=== PATIENT | female | born 1945 | race Caucasian/White ===

== ENCOUNTER → 2024-01-30 | Outpatient (CLI) | payer SELFPAY ==
[2024-01-30] VITALS (11 sets, daily range): BP systolic 85–143; BP diastolic 41–69; PULSE 60–73; RESP 14–21; TEMP 36.8; O2SAT 36–97; BMI 27.1
--- NOTE | 2024-01-30 | IMM_PTH ---
PATIENT: IKE BRYAN LOC: [place] U#:[id number] AGE/SX: 78/F ROOM: RE01/30/[address]: Dr. Ton Olson MD : 1945 BED: DIS: 01/30/2024 SPEC #: [id number] RECD: 02/02/24 10:13 STATUS: AUDREY REQ #: [id number] CALEB: 01/30/24 00:[address]: Ton Olson DEPT: IMMUNOHISTOCHEMISTRY RECD BY: Jez Mckay ENTERED: 02/02/24 10:14 SP TYPE: IMMUNO OTHR DR: Dr. Issac Stubbs DO Tissues: Abdomen, NOS Procedures: SMA (add) CD34 (add) CD45 (add) CK8 (add) DESMIN (add) KI-67 (add) Vimentin (add) Pankeratin (initial) PHYSICIAN & INSTITUTION [place] [id number] SPECIMEN INFORMATION: Tissue Source: 18 gauge- x3 core- mid abdomen Clinical Info: Abdominal mass Specimen Number: [id number] CPT code: 68484,[id number] METHODOLOGY: Deparaffinized sections of prefer/formalin-fixed tissue or PAP/DQ stained slides are incubated with monoclonal/polyclonal antibodies/oligonucleotide probes. Localization is made via biotin free immunoperoxidase method. Appropriate controls are performed and reacted as expected. Results on target cell population are indicated in the following table: RESULTS: ANTIBODY / CLONE RESULT AE1-3 (AE1/AE3/PCK26) negative CK8 (22fefvB89) negative CD45 (RP2/18) negative Vimentin (V9) negative CD34 (QBEnd-10) negative Actin (1A4) negative Desmin (CE-R-11) negative Ki-67 (30-9) negative These tests were developed and their performance characteristics determined by [facility]. They may not have been cleared or approved by the U.[place]. Food and Drug Administration. The FDA has determined that such clearance or approval is not necessary. The above immunohistochemical/dualISH markers are ordered and reviewed by the Pathologist. 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 ERICA/ 02/03/2024
--- NOTE | 2024-01-30 07:42 | CT_ITS ---
PROCEDURE: CT GUIDED biopsy of the anterior abdominal mass. DATE: January 30, 2024. INDICATION: Female, 78 years old. Abdominal mass. PHYSICIAN: Emanuel Cheek M.D. RADIATION DOSAGE (If Supplied By Facility): CTDIvol = ( 17.5 ) mGy, DLP = ( 493.73 ) mGycm. Individualized dose optimization techniques were utilized. PROCEDURE: The risks, benefits, and alternatives to the procedure were explained to the patient. The specific risk of hemorrhage requiring further treatment or intervention was detailed and accepted. Follow-up instructions were discussed with the patient as well. Written informed consent was obtained. The patient was brought into the CT suite and placed in the supine position. . An appropriate entry site was identified. The overlying skin was prepped and draped in the usual sterile fashion. 1% lidocaine was administered subcutaneously for local anesthesia. Conscious sedation was performed. The patient received 2 mg of Versed intravenously. Conscious sedation was started at 8:57 AM and terminated at 917. The patient was independently monitored by the department nurse. Under CT guidance, a total of 5 passes were performed utilizing an 18-gauge core biopsy needle system. The specimens were then placed in the appropriate fluid and transported to the laboratory for analysis. Hemostasis was obtained. The patient tolerated the procedure well without immediate complications. CT/Biopsy/Inj or Needle Placement IMPRESSION: Successful CT guided biopsy of the abdominal mass, as described above. The conscious sedation protocol was followed. Electronically Signed: Emanuel Cheek MD at 9:52 EDT ,
[2024-01-30] MEDS: 0.9% Saline Lock 10 ML Syringe IV (08:40)
[2024-01-30] MEDS: 0.9% Normal Saline (250mL Bag) 250 ML 15 ML IV (08:48)
[2024-01-30] MEDS: Midazolam 2 MG/2 ML Syringe IV (08:57)
[2024-01-30] MEDS: Lidocaine 2% (20 ml mdv) 20 ML Vial INFILT (09:11)
--- NOTE | 2024-01-30 09:15 | TISS_PTH ---
PATIENT: IKE BRYAN LOC: CT U#:[id number] AGE/SX: 78/F ROOM: RE01/30/[address]: Dr. Ton Olson MD : 1945 BED: DIS: 01/30/2024 SPEC #: [id number] RECD: 01/30/24 09:32 STATUS: AUDREY OMER #: [id number] CALEB: 01/30/24 09:[address]: Ton Olson DEPT: SURGICAL PATHOLOGY RECD BY: Clementine Whipple ENTERED: 01/30/24 10:47 SP TYPE: Tissue Bx BRITTANY DR: Dr. Issac Stubbs, DO Tissues: Abdomen, NOS Procedures: Surgery Specimen Level IV HEADER OPERATION: CT guided abdominal biopsy PRE-OP DIAGNOSIS: Mass TISSUE SUBMITTED: 18 gauge- x 3 core- mid abdomen MICROSCOPIC DIAGNOSIS Abdominal mass, CT guided core biopsy: Fragments of infarcted spindle cell lesion. See comment. ERICA/ 02/03/2024 COMMENT Immunohistochemistry ([id number]) is noncontributory due to infarcted nature of this specimen. Excisional biopsy of the lesion is suggested for definite diagnosis, if clinically indicated. This case is discussed with Maria Del Carmen Santillan on 02/03/24. MICROSCOPIC DESCRIPTION Slides are reviewed. GROSS DESCRIPTION Received is one container labeled with the patient's name and not further designated. The specimen consists of multiple irregular and elongated fragments of wong tissue measuring in aggregate 1.2 x 0.1 x <0.1cm. The specimen is totally submitted in one cassette. AM/mr 01/30/2024 TC: ? CPT:65211
== END | disposition home or self-care (01) ==
PROVIDERS: PCP Family Medicine; Referring Provider Internal Medicine Medical Oncology; Visit Provider Internal Medicine Medical Oncology
DX: R19.00 Intra-abdominal and pelvic swelling, mass and lump, unspecified site (principal)
CPT/HCPCS: 49180; 77012; 88305; 88341; 88342; 99156; J7050; A4216